=== PATIENT | male | born 1985 | race African-American/Black ===

== ENCOUNTER 2016-09-20 06:47 | Emergency (ER) | payer OTHER ==
[~2016-09-20] VITALS: Ht 190.5 cm; Wt 136.1 kg
[2016-09-20 06:58] VITALS: BP 141/86
[2016-09-20] MEDS ORDERED: ACULAR5 ML OPH (07:41)
[2016-09-20] MEDS ORDERED: TOBRAMYCIN-DEXAM5 ML OPH (07:41)
[2016-09-20] MEDS ORDERED: NAPHCON-A EYE D15 ML OU (07:41)
--- NOTE | 2016-09-20 07:41 | ED EYE COMPLAINT ---
History of Present Illness General Chief Complaint: Eye Problems Stated Complaint: "PER PT LT EYE RED, PUFFY" Source: patient, old records Exam Limitations: no limitations Vital Signs & Intake/Output Vital Signs & Intake/Output Vital Signs Date Time Temp Pulse Resp B/P Pulse O2 O2 Flow FiO2 Ox Delivery Rate 09/20 0658 97.4 89 16 141/86 98 Room Air Allergies Coded Allergies: No Known Allergies (09/20/16) Reconcile Medications Ketorolac Tromethamine (Acular) 0.5 % DROPS 1 GTT OPH 4 TIMES/DAY PRN pain Naphazoline HCl/Pheniramine (Naphcon-A Eye Drops) 0.025 %-0.3 % DROPS 2 GTT OU Q6P PRN itchiness Tobramycin/Dexamethasone (Tobramycin-Dexameth Ophth Susp) 0.3 %-0.1 % DROPS.SUSP 2 GTT OPH 4 TIMES/DAY keratoconjunctivitis Triage Note: PT STATES HE HAS RED EYES AND HIS LEFT EYE IS DRAINING AND CRUSTED SHUT THIS AM. PT REPORTS HAVING RED EYES FOR THE PAST TWO DAYS. Triage Nurses Notes Reviewed? yes Onset: yesterday Duration: constant, continues in ED Timing: recent history Injury Environment: home Severity: moderate No Modifying Factors: none Left Eye Associated Symptoms: burning, itching, sensitivity to light, orbital redness, eyelid swelling Right Eye Associated Symptoms: burning, sensitivity to light, orbital matting, orbital redness, orbital swelling HPI: 2 days prior to admission patient complains of bilateral eye redness tearing with sensitivity to light. He denies fever chills nausea vomiting diarrhea abdominal pain chest pain shortness breath cough congestion headache dysuria bleeding. Past History Travel History Traveled to [place] past 21 day No Medical History Any Pertinent Medical History? none Surgical History Surgical History: non-contributory Psychosocial History What is your primary language Tajik Tobacco Use: Never used ETOH Use: occasional use Illicit Drug Use: denies illicit drug use Family History Hx Contributory? No Review of Systems Review of Systems Constitutional: Reports: no symptoms. Ear: Reports: no symptoms. Nose: Reports: no symptoms. Mouth: Reports: no symptoms. Throat: Reports: no symptoms. Respiratory: Reports: no symptoms. Cardiovascular: Reports: no symptoms. GI: Reports: no symptoms. Genitourinary: Reports: no symptoms. Musculoskeletal: Reports: no symptoms. Skin: Reports: no symptoms. Neurological/Psychological: Reports: no symptoms. Hematologic/Endocrine: Reports: no symptoms. Immunologic/Allergic: Reports: no symptoms. All Other Systems: Reviewed and Negative Physical Exam General Appearance: well developed/nourished, mild distress General Inspection: periorbital swelling Eyelid: edema Conjunctiva/Sclera: injected Cornea: normal inspection EOM: intact Pupil: normal accommodation, normal pupil, PERRL Anterior Chamber: normal inspection General Inspection: periorbital swelling Eyelid: edema Conjunctiva/Sclera: injected Cornea: normal inspection EOM: intact Pupil: normal accommodation, normal pupil, PERRL Anterior Chamber: normal inspection Physical Exam Head: atraumatic Ears: Bilateral: canal normal, Tympanic normal. Nose: normal inspection Mouth/Throat: normal mouth inspection Neck: normal inspection, supple Cardiovascular/Respiratory: normal breath sounds, regular rate/rhythm Neurologic/Psych: awake, alert, oriented x 3, normal mood/affect Skin: intact, normal color, warm/dry Progress Differential Diagnosis: conjunctivitis Plan of Care: antibiotic steroid Departure Departure Time of Disposition: 735 Disposition: HOME OR SELF CARE Condition: Stable Clinical Impression Primary Impression: Keratoconjunctivitis of both eyes Referrals: CAMILLA RAMIREZ,NOE Painter Call for ophthmology follow up Departure Forms: Customer Survey General Discharge Information Prescriptions: Current Visit Scripts Naphazoline HCl/Pheniramine (Naphcon-A Eye Drops) 2 GTT OU Q6P PRN itchiness #1 BOT Ref 1 Tobramycin/Dexamethasone (Tobramycin-Dexameth Ophth Susp) 2 GTT OPH 4 TIMES/DAY #5 ML Ketorolac Tromethamine (Acular) 1 GTT OPH 4 TIMES/DAY PRN pain #5 ML
== END 2016-09-20 07:46 ==
LOC: ERH 06:47
DX: H16.203 Unspecified keratoconjunctivitis, bilateral (principal)